=== PATIENT | female | born 1940 | race African-American/Black ===

== ENCOUNTER 2021-08-28 03:32 | Inpatient (IN) ==
[2021-08-28] MEDS ORDERED: SODIUM CHLORIDE 0.9% 1,000 ML IV STA (03:54)
[2021-08-28 05:09] LABS: Basophils # 0.1 10*3/uL (0.0-0.2); Basophils % 0.7 % (0.0-0.8); Eosinophils # 0.1 10*3/uL (0.0-0.87); Eosinophils % 0.5 % (0.00-10.9); Hematocrit 47.1 VOL% (35.7-47.0); Hemoglobin 14.8 GM/DL (12.0-16.0); Immature Granulocytes % 0.5 %; Immature Granulocytes Absolute 0.05 #; Lymphocytes # 2.5 10*3/uL (1.4-4.0); Lymphocytes % 25.2 % (21.3-54.2); Mean Corpuscular HGB Conc 31.4 GM/DL (32-36); Mean Corpuscular Volume 86.3 FL (87-102); Mean Platelet Volume 11.8 FL (9.6-12.0); Monocytes % 9.2 % (1.7-12.7); Neutrophils % 63.9 % (38.7-73.9); Platelet Count 259 T/CUMM (130-400); Red Blood Count 5.46 MC/CUMM (3.8-5.5); Red Cell Distribution Width 16.5 % (9.3-17.3)
[2021-08-28] MEDS ORDERED: LORazepam 2 MG/1 ML VIAL IV STA (05:19)
[2021-08-28 05:31] LABS: Albumin 3.6 G/DL (3.4-5.0); Calcium 9.2 MG/DL (8.5-10.1); Osmolality,Calculated 273.2 MOS/KG (273-304); Potassium 5.4 MMOL/L (3.5-5.1); Total Protein 8.1 G/DL (6.4-8.2)
[2021-08-28] MEDS ORDERED: DEXTROSE 50% 25 GM/50 ML VIAL IV STA (07:15)
[2021-08-28] MEDS ORDERED: DEXTROSE 50% 25 GM/50 ML SYRINGE IV ONE (07:15)
[2021-08-28] MEDS ORDERED: DEXTROSE 50% 25 GM/50 ML SYRINGE IV STA (07:22)
[2021-08-28] MEDS ORDERED: ONDANSETRON 4 MG/2 ML VIAL IV PRN (07:45)
[2021-08-28] MEDS ORDERED: hydrALAZINE 20 MG/1 ML VIAL IV PRN (07:45)
[2021-08-28] MEDS ORDERED: DOCUSATE SODIUM 100 MG CAPSULE PO PRN (07:45)
[2021-08-28] MEDS ORDERED: ACETAMINOPHEN 325 MG TABLET PO PRN (07:45)
[2021-08-28] MEDS ORDERED: ALUMINUM/MAGNES/SIMETH MAX STR 30 ML UDCUP PO PRN (07:45)
[2021-08-28] MEDS ORDERED: DEXTROSE 50% 25 GM/50 ML VIAL IV PRN (07:45)
[2021-08-28] MEDS ORDERED: GLUCAGON 1 MG VIAL IM PRN ×2 (07:45)
[2021-08-28] MEDS ORDERED: SODIUM CHLORIDE 0.9% 1,000 ML IV SCH (08:00)
[2021-08-28] MEDS ORDERED: DEXTROSE 50% 25 GM/50 ML SYRINGE IV PRN (08:05)
[2021-08-28 08:28] LABS: Bilirubin,Urine Negative (Negative); Blood, Urine Negative (Negative); Glucose,Urine (UA) Negative (Negative); Hyaline Casts,Urine 6 /LPF (0-3); Ketones,Urine Negative (Negative); Mucus,Urine Occasional /LPF (Occasional); Nitrite,Urine Negative (Negative); Protein,Urine 30 MG/DL; RBC,Urine 1 /HPF (0-4); Squamous Epithelial Cell,Urine Occasional /HPF (0-10); Urine Appearance Slightly Hazy (Clear); Urine Color Yellow (Yellow); Urine Urobilinogen < 2.0 EU/DL (0.2-1.0)
[2021-08-28 08:39] LABS: Risk Ratio 2.68; VLDL Cholesterol 20.6 MG/DL
[2021-08-28 09:26] LABS: ABG Base Excess 1.7 MMOL/L (-2.5-2.5); ABG HCO3 25.9 MMOL/L (20-26); ABG PCO2 39.7 MM HG (35-48); ABG PH 7.425 (7.35-7.45); ABG TCO2 22.5 MMOL/L (23-27); Allen Test Positive
[2021-08-28] MEDS: INSULIN LISPRO 100 UNIT/ML SUBCUT SCH ×5 (10:27→23:07)
[2021-08-28] MEDS: PANTOPRAZOLE 40 MG TABLET PO SCH (10:28)
[2021-08-28] MEDS: DEXTROSE 5% NACL 0.45% 1,000 ML IV SCH ×2 (10:29→23:07)
[2021-08-28 10:34] LABS: Calcium 9.1 MG/DL (8.5-10.1); Osmolality,Calculated 278.8 MOS/KG (273-304); Potassium 3.9 MMOL/L (3.5-5.1)
[2021-08-28] MEDS: HEPARIN 5,000 UNIT/1 ML VIAL SUBCUT SCH ×2 (10:34→22:57)
[2021-08-28] MEDS: hydrALAZINE 25 MG TABLET PO SCH ×2 (16:38→21:28)
[2021-08-28] MEDS ORDERED: ROSUVASTATIN 10 MG TABLET PO SCH (21:00)
[2021-08-28] MEDS ORDERED: amLODIPine 10 MG TABLET PO SCH (21:00)
[2021-08-28 23:56] LABS: Folate 7.94 NG/ML (5.38-24.0)
[2021-08-29] MEDS ORDERED: CHOLECALCIFEROL 1,000 UNIT TABLET PO SCH (09:00)
[2021-08-29 13:19] LABS: Basophils # 0.1 10*3/uL (0.0-0.2); Basophils % 0.8 % (0.0-0.8); Eosinophils # 0.2 10*3/uL (0.0-0.87); Eosinophils % 2.1 % (0.00-10.9); Hematocrit 41.4 VOL% (35.7-47.0); Hemoglobin 13.1 GM/DL (12.0-16.0); Immature Granulocytes % 0.3 %; Immature Granulocytes Absolute 0.02 #; Lymphocytes # 2.8 10*3/uL (1.4-4.0); Lymphocytes % 35.6 % (21.3-54.2); Mean Corpuscular HGB Conc 31.6 GM/DL (32-36); Mean Corpuscular Volume 85.7 FL (87-102); Mean Platelet Volume 11.8 FL (9.6-12.0); Monocytes % 9.9 % (1.7-12.7); Neutrophils % 51.3 % (38.7-73.9); Platelet Count 234 T/CUMM (130-400); Red Blood Count 4.83 MC/CUMM (3.8-5.5); Red Cell Distribution Width 16.1 % (9.3-17.3); White Blood Count 7.8 T/CUMM (4-12)
[2021-08-29] MEDS: DEXTROSE 5% NACL 0.45% 1,000 ML IV SCH ×2 (13:52→17:09)
[2021-08-29] MEDS: INSULIN LISPRO 100 UNIT/ML SUBCUT SCH ×4 (13:52→23:20)
[2021-08-29] MEDS: HEPARIN 5,000 UNIT/1 ML VIAL SUBCUT SCH ×2 (13:53→21:31)
[2021-08-29] MEDS: hydrALAZINE 25 MG TABLET PO SCH (13:53)
[2021-08-29] MEDS: PANTOPRAZOLE 40 MG TABLET PO SCH (13:53)
[2021-08-29] MEDS ORDERED: ZIPRASIDONE 20 MG/1 ML VIAL IM ONE (14:00)
[2021-08-29 14:08] LABS: Albumin 2.8 G/DL (3.4-5.0); Bilirubin,Total 1.03 MG/DL (0.20-1.00); Calcium 8.7 MG/DL (8.5-10.1); Osmolality,Calculated 278.8 MOS/KG (273-304); Potassium 3.4 MMOL/L (3.5-5.1); Total Protein 6.9 G/DL (6.4-8.2)
[2021-08-29] MEDS ORDERED: CHOLECALCIFEROL 1,000 UNIT TABLET PO ONE (14:56)
[2021-08-29] MEDS ORDERED: OLANZapine 10 MG VIAL IM ONE (15:08)
[2021-08-29] MEDS ORDERED: POTASSIUM CHLORIDE 20 MEQ TABLET PO ONE (15:16)
[2021-08-29] MEDS ORDERED: LORazepam 1 MG TABLET PO ONE (21:00)
[2021-08-30] MEDS: INSULIN LISPRO 100 UNIT/ML SUBCUT SCH ×5 (03:18→22:38)
[2021-08-30 06:03] LABS: Basophils # 0.1 10*3/uL (0.0-0.2); Basophils % 0.9 % (0.0-0.8); Eosinophils # 0.1 10*3/uL (0.0-0.87); Eosinophils % 1.5 % (0.00-10.9); Hematocrit 43.5 VOL% (35.7-47.0); Hemoglobin 13.7 GM/DL (12.0-16.0); Immature Granulocytes % 0.3 %; Immature Granulocytes Absolute 0.02 #; Lymphocytes # 1.7 10*3/uL (1.4-4.0); Lymphocytes % 25.1 % (21.3-54.2); Mean Corpuscular HGB Conc 31.5 GM/DL (32-36); Mean Corpuscular Volume 85.6 FL (87-102); Mean Platelet Volume 11.3 FL (9.6-12.0); Monocytes % 11.1 % (1.7-12.7); Neutrophils % 61.1 % (38.7-73.9); Platelet Count 275 T/CUMM (130-400); Red Blood Count 5.08 MC/CUMM (3.8-5.5); Red Cell Distribution Width 16.2 % (9.3-17.3); White Blood Count 6.7 T/CUMM (4-12)
[2021-08-30] MEDS: DEXTROSE 5% NACL 0.45% 1,000 ML IV SCH ×3 (06:25→16:42)
[2021-08-30 06:32] LABS: Calcium 9.5 MG/DL (8.5-10.1); Osmolality,Calculated 283.1 MOS/KG (273-304); Potassium 3.7 MMOL/L (3.5-5.1)
[2021-08-30] MEDS: PANTOPRAZOLE 40 MG TABLET PO SCH (10:11)
[2021-08-30] MEDS: CHOLECALCIFEROL 1,000 UNIT TABLET PO SCH (10:11)
[2021-08-30] MEDS: HEPARIN 5,000 UNIT/1 ML VIAL SUBCUT SCH ×2 (13:20→22:37)
[2021-08-31 06:29] LABS: Basophils # 0.1 10*3/uL (0.0-0.2); Basophils % 0.6 % (0.0-0.8); Eosinophils # 0.1 10*3/uL (0.0-0.87); Eosinophils % 0.7 % (0.00-10.9); Hematocrit 44.4 VOL% (35.7-47.0); Hemoglobin 14.3 GM/DL (12.0-16.0); Immature Granulocytes % 0.4 %; Immature Granulocytes Absolute 0.04 #; Lymphocytes # 2.4 10*3/uL (1.4-4.0); Lymphocytes % 25.5 % (21.3-54.2); Mean Corpuscular HGB Conc 32.2 GM/DL (32-36); Mean Corpuscular Volume 85.2 FL (87-102); Mean Platelet Volume 11.9 FL (9.6-12.0); Monocytes % 8.6 % (1.7-12.7); Neutrophils % 64.2 % (38.7-73.9); Platelet Count 218 T/CUMM (130-400); Red Blood Count 5.21 MC/CUMM (3.8-5.5); Red Cell Distribution Width 16.6 % (9.3-17.3); White Blood Count 9.5 T/CUMM (4-12)
[2021-08-31 06:46] LABS: Calcium 9.3 MG/DL (8.5-10.1); Osmolality,Calculated 276.5 MOS/KG (273-304); Potassium 3.9 MMOL/L (3.5-5.1)
[2021-08-31] MEDS: INSULIN LISPRO 100 UNIT/ML SUBCUT SCH ×4 (07:29→17:22)
[2021-08-31] MEDS: HEPARIN 5,000 UNIT/1 ML VIAL SUBCUT SCH (09:50)
[2021-08-31] MEDS: CHOLECALCIFEROL 1,000 UNIT TABLET PO SCH (09:50)
[2021-08-31] MEDS: PANTOPRAZOLE 40 MG TABLET PO SCH (09:50)
[2021-08-31] MEDS: DEXTROSE 5% NACL 0.45% 1,000 ML IV SCH ×3 (10:33→18:13)
[2021-08-31] MEDS ORDERED: amLODIPine 5 MG TABLET PO ONE (15:21)
[2021-08-31] MEDS ORDERED: KETOCONAZOLE 2% CREAM 30 GM TUBE TOP PRN (15:49)
[2021-08-31] MEDS: LOSARTAN 25 MG TABLET PO SCH (17:13)
[2021-08-31] MEDS: ROSUVASTATIN 10 MG TABLET PO SCH (22:38)
[2021-08-31] MEDS: HALOPERIDOL 1 MG TABLET PO SCH (22:38)
[2021-09-01 06:26] LABS: Calcium 8.7 MG/DL (8.5-10.1); Osmolality,Calculated 286.1 MOS/KG (273-304); Potassium 3.7 MMOL/L (3.5-5.1)
[2021-09-01] MEDS: DEXTROSE 5% NACL 0.45% 1,000 ML IV SCH ×2 (06:58→16:10)
[2021-09-01] MEDS: INSULIN LISPRO 100 UNIT/ML SUBCUT SCH ×5 (06:58→21:22)
[2021-09-01] MEDS ORDERED: NON-FORMULARY MEDICATION (Cholecalciferol (Vitamin D3) [Vitamin D3] 50 mcg (2,000 unit) Ta PO SCH (09:00)
[2021-09-01 09:58] LABS: PT Patient Result 11.2 SECS (10.5-12.0)
[2021-09-01] MEDS: HALOPERIDOL 1 MG TABLET PO SCH ×2 (10:38→21:21)
[2021-09-01] MEDS: LOSARTAN 25 MG TABLET PO SCH (10:38)
[2021-09-01] MEDS: CHOLECALCIFEROL 1,000 UNIT TABLET PO SCH (10:38)
[2021-09-01] MEDS: amLODIPine 5 MG TABLET PO SCH (10:41)
[2021-09-01] MEDS: PANTOPRAZOLE 40 MG TABLET PO SCH (10:41)
[2021-09-01 17:19] LABS: Glucose,CSF 85 MG/DL (40-70)
[2021-09-01 18:54] LABS: Red Blood Cell,CSF 1888 C/CUMM; White Blood Cell,CSF 2 C/CUMM
[2021-09-01 19:00] LABS: Lymphocytes,CSF 58 %; Monocytes,CSF 29 %; Neutrophils,CSF 14 %
[2021-09-01 19:05] LABS: Appearance,CSF Clear
[2021-09-01] MEDS: MEMANTINE 5 MG TABLET PO SCH (21:21)
[2021-09-01] MEDS: ROSUVASTATIN 10 MG TABLET PO SCH (21:21)
[2021-09-02] MEDS: DEXTROSE 5% NACL 0.45% 1,000 ML IV SCH ×2 (00:16→11:55)
[2021-09-02] MEDS: INSULIN LISPRO 100 UNIT/ML SUBCUT SCH ×4 (00:17→12:04)
[2021-09-02 06:40] LABS: Basophils # 0.1 10*3/uL (0.0-0.2); Basophils % 0.8 % (0.0-0.8); Eosinophils # 0.2 10*3/uL (0.0-0.87); Hematocrit 42.7 VOL% (35.7-47.0); Hemoglobin 13.3 GM/DL (12.0-16.0); Immature Granulocytes % 0.3 %; Immature Granulocytes Absolute 0.02 #; Lymphocytes # 2.5 10*3/uL (1.4-4.0); Lymphocytes % 31.8 % (21.3-54.2); Mean Corpuscular HGB Conc 31.1 GM/DL (32-36); Mean Corpuscular Volume 87.3 FL (87-102); Mean Platelet Volume 11.5 FL (9.6-12.0); Monocytes % 8.4 % (1.7-12.7); Neutrophils % 55.7 % (38.7-73.9); Platelet Count 247 T/CUMM (130-400); Red Blood Count 4.89 MC/CUMM (3.8-5.5); Red Cell Distribution Width 16.6 % (9.3-17.3); White Blood Count 7.7 T/CUMM (4-12)
[2021-09-02 07:06] LABS: Calcium 8.9 MG/DL (8.5-10.1); Osmolality,Calculated 285.1 MOS/KG (273-304)
[2021-09-02] MEDS: CHOLECALCIFEROL 1,000 UNIT TABLET PO SCH (10:23)
[2021-09-02] MEDS: HALOPERIDOL 1 MG TABLET PO SCH (10:23)
[2021-09-02] MEDS: amLODIPine 5 MG TABLET PO SCH (10:24)
[2021-09-02] MEDS: PANTOPRAZOLE 40 MG TABLET PO SCH (10:24)
[2021-09-02] MEDS: LOSARTAN 25 MG TABLET PO SCH (10:24)
[2021-09-02] MEDS: MEMANTINE 5 MG TABLET PO SCH (10:24)
[2021-09-02 12:36] VITALS: BP 145/81
[2021-09-03 13:11] LABS: VDRL Spinal Fluid Negative (Negative)
[2021-09-06 08:36] LABS: M. Tuberculosis PCR Result Negative (Negative); M. Tuberculosis PCR Source CSF
== END 2021-09-02 16:01 | disposition home health service (06) | DRG 682 ==
LOC: EDBD → EDUNIT# → N.ED 03:32 → SUATTDRO 07:45 → N.EDINP 07:45 → N.TELEN 16:00
PROVIDERS: ADMIT Internal Medicine; ATTEND Internal Medicine

== ENCOUNTER 2022-05-23 21:15 | Observation (INO) ==
[2022-05-23] MEDS ORDERED: SODIUM CHLORIDE 0.9% 500 ML IV STA ×2 (21:51→23:21)
[2022-05-23] MEDS ORDERED: ONDANSETRON 4 MG/2 ML VIAL IV STA (21:51)
[2022-05-23 22:17] LABS: Alanine Aminotransferase 31 U/L (13-56); Albumin 3.3 G/DL (3.4-5.0); Alkaline Phosphatase 108 U/L (45-117); Aspartate Amino Transferase 37 U/L (0-37); Bilirubin,Total < 0.39 MG/DL (0.20-1.00); Blood Urea Nitrogen 13 MG/DL (7-18); Calcium 9.2 MG/DL (8.5-10.1); Carbon Dioxide 29 MMOL/L (21-32); Chloride 109 MMOL/L (98-107); Glucose 180 MG/DL (74-106); Potassium 3.5 MMOL/L (3.5-5.1); Sodium 143 MMOL/L (136-145); Total Protein 7.6 G/DL (6.4-8.2)
[2022-05-23 22:36] LABS: Basophils # 0.1 10*3/uL (0.0-0.2); Basophils % 0.5 % (0.0-0.8); Eosinophils # 0.1 10*3/uL (0.0-0.87); Eosinophils % 0.4 % (0.00-10.9); Hematocrit 48.9 VOL% (35.7-47.0); Hemoglobin 15.2 GM/DL (12.0-16.0); Immature Granulocytes % 0.4 %; Immature Granulocytes Absolute 0.04 #; Lymphocytes # 2.6 10*3/uL (1.4-4.0); Lymphocytes % 22.7 % (21.3-54.2); Mean Corpuscular HGB Conc 31.1 GM/DL (32-36); Mean Corpuscular Volume 90.2 FL (87-102); Mean Platelet Volume 10.5 FL (9.6-12.0); Monocytes # 0.8 10*3/uL (0.11-0.8); Monocytes % 7.5 % (1.7-12.7); Neutrophils % 68.5 % (38.7-73.9); Platelet Count 249 T/CUMM (130-400); Red Blood Count 5.42 MC/CUMM (3.8-5.5); Red Cell Distribution Width 15.9 % (9.3-17.3); White Blood Count 11.3 T/CUMM (4-12)
[2022-05-23 23:52] LABS: Amorphous Crystals,Urine Occasional /HPF (Few); Mucus,Urine Occasional /LPF (Occasional); RBC,Urine 2 /HPF (0-4); Squamous Epithelial Cell,Urine Occasional /HPF (0-10); Urine Appearance Clear (Clear); Urine Color Yellow (Yellow)
[2022-05-23 23:53] LABS: Bilirubin,Urine Negative (Negative); Blood, Urine Negative (Negative); Glucose,Urine (UA) >=1000 mg/dL (Negative); Ketones,Urine Negative (Negative); Nitrite,Urine Negative (Negative); Protein,Urine 30 mg/dL (Negative); Urine Urobilinogen 0.2 eU/dL (<2.0)
[2022-05-24] MEDS ORDERED: ONDANSETRON 4 MG/2 ML VIAL IV PRN (01:49)
[2022-05-24] MEDS ORDERED: GLUCAGON 1 MG VIAL IM PRN (01:49)
[2022-05-24] MEDS ORDERED: ACETAMINOPHEN 325 MG TABLET PO PRN (01:49)
[2022-05-24] MEDS ORDERED: DEXTROSE 10% 250 ML BAG IV PRN (01:54)
[2022-05-24] MEDS: LACTATED RINGERS 1,000 ML IV SCH ×2 (02:22→14:00)
[2022-05-24 04:19] LABS: Basophils # 0.1 10*3/uL (0.0-0.2); Basophils % 0.5 % (0.0-0.8); Eosinophils % 0.1 % (0.00-10.9); Hematocrit 44.3 VOL% (35.7-47.0); Hemoglobin 13.8 GM/DL (12.0-16.0); Immature Granulocytes % 0.4 %; Immature Granulocytes Absolute 0.04 #; Lymphocytes # 1.7 10*3/uL (1.4-4.0); Lymphocytes % 17.6 % (21.3-54.2); Mean Corpuscular HGB Conc 31.2 GM/DL (32-36); Mean Corpuscular Volume 89.7 FL (87-102); Mean Platelet Volume 10.5 FL (9.6-12.0); Monocytes # 0.6 10*3/uL (0.11-0.8); Monocytes % 6.3 % (1.7-12.7); Neutrophils % 75.1 % (38.7-73.9); Platelet Count 233 T/CUMM (130-400); Red Blood Count 4.94 MC/CUMM (3.8-5.5); Red Cell Distribution Width 15.9 % (9.3-17.3); White Blood Count 9.7 T/CUMM (4-12)
[2022-05-24 04:42] LABS: Calcium 8.6 MG/DL (8.5-10.1); Osmolality,Calculated 283.1 MOS/KG (273-304); Potassium 3.5 MMOL/L (3.5-5.1)
[2022-05-24] MEDS: INSULIN REGULAR 100 UNIT/ML SUBCUT SCH ×4 (07:36→21:35)
[2022-05-24] MEDS: PANTOPRAZOLE 40 MG TABLET PO SCH (09:28)
[2022-05-24] MEDS: ENOXAPARIN 40 MG/0.4 ML SYRINGE SUBCUT SCH (09:28)
[2022-05-24] MEDS ORDERED: ROSUVASTATIN 10 MG TABLET PO SCH (21:00)
[2022-05-24] MEDS: MEMANTINE 10 MG TABLET PO SCH (21:34)
[2022-05-24] MEDS: HALOPERIDOL 1 MG TABLET PO SCH (21:34)
[2022-05-25] MEDS: LACTATED RINGERS 1,000 ML IV SCH ×2 (03:20→08:35)
[2022-05-25] MEDS: HALOPERIDOL 1 MG TABLET PO SCH (08:31)
[2022-05-25] MEDS: MEMANTINE 10 MG TABLET PO SCH (08:31)
[2022-05-25] MEDS: PANTOPRAZOLE 40 MG TABLET PO SCH (08:31)
[2022-05-25] MEDS: ENOXAPARIN 40 MG/0.4 ML SYRINGE SUBCUT SCH (08:32)
[2022-05-25] MEDS: INSULIN REGULAR 100 UNIT/ML SUBCUT SCH ×2 (08:35→12:20)
[2022-05-25] MEDS ORDERED: amLODIPine 10 MG TABLET PO SCH (09:00)
[2022-05-25] MEDS ORDERED: VALSARTAN 160 MG TABLET PO SCH (09:00)
[2022-05-25 12:12] VITALS: BP 169/68
== END 2022-05-25 13:21 | disposition home or self-care (01) ==
LOC: EDBD → EDUNIT# → N.EDINP 21:15 → N.ED 21:15 → N.EDINP 05-24 16:18 → N.5E 05-24 16:21
PROVIDERS: ADMIT Internal Medicine; ATTEND Internal Medicine

== ENCOUNTER 2022-10-14 15:19 | Inpatient (IN) ==
[2022-10-14 16:24] LABS: Basophils # 0.1 10*3/uL (0.0-0.2); Basophils % 0.7 % (0.0-0.8); Eosinophils # 0.1 10*3/uL (0.0-0.87); Eosinophils % 0.9 % (0.00-10.9); Hematocrit 47.1 VOL% (35.7-47.0); Hemoglobin 15.1 GM/DL (12.0-16.0); Immature Granulocytes % 0.3 %; Immature Granulocytes Absolute 0.02 #; Lymphocytes # 2.9 10*3/uL (1.4-4.0); Mean Corpuscular HGB Conc 32.1 GM/DL (32-36); Mean Corpuscular Volume 88.9 FL (87-102); Mean Platelet Volume 10.6 FL (9.6-12.0); Monocytes # 0.5 10*3/uL (0.11-0.8); Monocytes % 7.3 % (1.7-12.7); Neutrophils % 48.8 % (38.7-73.9); Platelet Count 216 T/CUMM (130-400)
[2022-10-14 16:35] LABS: PT Patient Result 11.1 SECS (10.1-12.1)
[2022-10-14 16:59] LABS: Bilirubin,Urine Negative (Negative); Blood, Urine Negative (Negative); Glucose,Urine (UA) >=1000 mg/dL (Negative); Ketones,Urine Negative (Negative); Nitrite,Urine Negative (Negative); Protein,Urine Negative (Negative); Squamous Epithelial Cell,Urine Occasional /HPF (0-10); Urine Appearance Clear (Clear); Urine Color Yellow (Yellow)
[2022-10-14 17:04] LABS: Alanine Aminotransferase 17 U/L (13-56); Albumin 3.4 G/DL (3.4-5.0); Alkaline Phosphatase 79 U/L (45-117); Aspartate Amino Transferase 19 U/L (0-37); Blood Urea Nitrogen 18 MG/DL (7-18); Calcium 9.4 MG/DL (8.5-10.1); Carbon Dioxide 29 MMOL/L (21-32); Chloride 106 MMOL/L (98-107); Glucose 137 MG/DL (74-106); Osmolality,Calculated 284.3 MOS/KG (273-304); Potassium 4.5 MMOL/L (3.5-5.1); Sodium 141 MMOL/L (136-145); Total Protein 7.4 G/DL (6.4-8.2)
[2022-10-14] MEDS ORDERED: ACETAMINOPHEN 325 MG TABLET PO PRN (17:50)
[2022-10-14] MEDS ORDERED: DEXTROSE 10% 250 ML BAG IV PRN (17:50)
[2022-10-14] MEDS ORDERED: GLUCAGON 1 MG VIAL IM PRN (17:50)
[2022-10-14] MEDS ORDERED: ONDANSETRON 4 MG/2 ML VIAL IV PRN (17:50)
[2022-10-14 20:33] LABS: Barbiturates Screen,Urine Negative (Negative); Benzodiazepines Screen,Urine Negative (Negative); Cannabinoid Screen,Urine Negative (Negative); Opiate Screen,Urine Negative (Negative); Phencyclidine Screen,Urine Negative (Negative)
[2022-10-14] MEDS ORDERED: DOPamine 800 MG/250 ML PREMIX IV ONE (22:13)
[2022-10-14] MEDS ORDERED: ATROPINE 1 MG/10 ML SYRINGE ONE (22:19)
[2022-10-14] MEDS: DOPamine 800 MG/250 ML PREMIX IV PRN (22:19)
[2022-10-14] MEDS ORDERED: ALBUTEROL 2.5 MG/3 ML NEB RESP TX PRN (22:27)
[2022-10-14] MEDS ORDERED: GLUCAGON 1 MG VIAL IV ONE (22:50)
[2022-10-14] MEDS: INSULIN REGULAR 100 UNIT/ML SUBCUT SCH (23:56)
[2022-10-15] MEDS: SODIUM CHLORIDE 0.9% 1,000 ML IV SCH ×3 (00:14→20:13)
[2022-10-15 00:50] LABS: Bacteria,Urine Occasional /HPF (Few); Mucus,Urine Occasional /LPF (Occasional); RBC,Urine <1 /HPF (0-4); Squamous Epithelial Cell,Urine Occasional /HPF (0-10); Urine Appearance Clear (Clear); Urine Color Yellow (Yellow)
[2022-10-15 00:51] LABS: Bilirubin,Urine Negative (Negative); Blood, Urine Negative (Negative); Glucose,Urine (UA) >=1000 mg/dL (Negative); Ketones,Urine Negative (Negative); Nitrite,Urine Negative (Negative); Protein,Urine Negative (Negative); Urine Specific Gravity 1.015 (1.001-1.035); Urine Urobilinogen 0.2 eU/dL (<2.0)
[2022-10-15 04:24] LABS: Basophils # 0.1 10*3/uL (0.0-0.2); Basophils % 0.6 % (0.0-0.8); Eosinophils % 0.1 % (0.00-10.9); Hematocrit 48.2 VOL% (35.7-47.0); Hemoglobin 15.3 GM/DL (12.0-16.0); Immature Granulocytes % 0.1 %; Immature Granulocytes Absolute 0.01 #; Lymphocytes # 1.8 10*3/uL (1.4-4.0); Lymphocytes % 22.9 % (21.3-54.2); Mean Corpuscular HGB Conc 31.7 GM/DL (32-36); Mean Corpuscular Volume 90.3 FL (87-102); Mean Platelet Volume 10.7 FL (9.6-12.0); Monocytes # 0.6 10*3/uL (0.11-0.8); Monocytes % 7.6 % (1.7-12.7); Neutrophils % 68.7 % (38.7-73.9); Platelet Count 202 T/CUMM (130-400); Red Blood Count 5.34 MC/CUMM (3.8-5.5); Red Cell Distribution Width 14.9 % (9.3-17.3); White Blood Count 7.8 T/CUMM (4-12)
[2022-10-15 04:50] LABS: Albumin 3.4 G/DL (3.4-5.0); Bilirubin,Total 0.4 MG/DL (0.20-1.00); Calcium 9.1 MG/DL (8.5-10.1); Osmolality,Calculated 285.3 MOS/KG (273-304); Potassium 4.1 MMOL/L (3.5-5.1); Risk Ratio 2.13; Thyroid Stimulating Hormone 1.49 uIU/ml (0.358-3.74); Total Protein 7.4 G/DL (6.4-8.2); VLDL Cholesterol 18.2 MG/DL
[2022-10-15] MEDS: INSULIN REGULAR 100 UNIT/ML SUBCUT SCH ×4 (08:26→21:00)
[2022-10-15] MEDS: DOPamine 800 MG/250 ML PREMIX IV PRN ×2 (11:00→23:28)
[2022-10-15] MEDS ORDERED: PHENTOLAMINE 5 MG VIAL INFILTRAT ONE (23:30)
[2022-10-16 04:19] LABS: Basophils # 0.1 10*3/uL (0.0-0.2); Basophils % 0.6 % (0.0-0.8); Eosinophils % 0.1 % (0.00-10.9); Hematocrit 43.5 VOL% (35.7-47.0); Immature Granulocytes % 0.5 %; Immature Granulocytes Absolute 0.04 #; Lymphocytes # 1.4 10*3/uL (1.4-4.0); Lymphocytes % 15.5 % (21.3-54.2); Mean Corpuscular HGB Conc 32.2 GM/DL (32-36); Mean Platelet Volume 10.7 FL (9.6-12.0); Monocytes # 0.8 10*3/uL (0.11-0.8); Monocytes % 9.5 % (1.7-12.7); Neutrophils % 73.8 % (38.7-73.9); Platelet Count 191 T/CUMM (130-400); Red Blood Count 4.78 MC/CUMM (3.8-5.5); Red Cell Distribution Width 14.7 % (9.3-17.3); White Blood Count 8.7 T/CUMM (4-12)
[2022-10-16 04:28] LABS: Calcium 8.9 MG/DL (8.5-10.1); Osmolality,Calculated 285.1 MOS/KG (273-304); Potassium 4.1 MMOL/L (3.5-5.1)
[2022-10-16] MEDS: INSULIN REGULAR 100 UNIT/ML SUBCUT SCH ×3 (11:58→20:08)
[2022-10-16] MEDS: SODIUM CHLORIDE 0.9% 1,000 ML IV SCH (18:00)
[2022-10-16] MEDS: hydrALAZINE 20 MG/1 ML VIAL IV PRN (20:07)
[2022-10-17 03:46] LABS: Basophils # 0.1 10*3/uL (0.0-0.2); Basophils % 0.5 % (0.0-0.8); Eosinophils # 0.1 10*3/uL (0.0-0.87); Eosinophils % 1.3 % (0.00-10.9); Hematocrit 40.6 VOL% (35.7-47.0); Hemoglobin 12.9 GM/DL (12.0-16.0); Immature Granulocytes % 0.4 %; Immature Granulocytes Absolute 0.04 #; Lymphocytes # 2.9 10*3/uL (1.4-4.0); Lymphocytes % 29.4 % (21.3-54.2); Mean Corpuscular HGB Conc 31.8 GM/DL (32-36); Mean Corpuscular Volume 90.4 FL (87-102); Mean Platelet Volume 10.3 FL (9.6-12.0); Monocytes # 0.8 10*3/uL (0.11-0.8); Monocytes % 7.7 % (1.7-12.7); Neutrophils % 60.7 % (38.7-73.9); Platelet Count 173 T/CUMM (130-400); Red Blood Count 4.49 MC/CUMM (3.8-5.5); Red Cell Distribution Width 15.2 % (9.3-17.3); White Blood Count 9.7 T/CUMM (4-12)
[2022-10-17 04:13] LABS: Calcium 8.7 MG/DL (8.5-10.1)
[2022-10-17] MEDS: INSULIN REGULAR 100 UNIT/ML SUBCUT SCH ×4 (07:12→20:43)
[2022-10-17] MEDS: ASPIRIN EC 81 MG TABLET PO SCH (09:27)
[2022-10-17] MEDS ORDERED: DIAZEPAM 5 MG TABLET PO ONE (12:12)
[2022-10-17] MEDS ORDERED: diphenhydrAMINE CAP 25 MG CAPSULE PO ONE (12:12)
[2022-10-17] MEDS ORDERED: ceFAZolin 1,000 MG VIAL IRRIG ONE (12:12)
[2022-10-17] MEDS: DEXTROSE 5% NACL 0.9% 1,000 ML IV SCH (13:31)
[2022-10-17] MEDS ORDERED: ceFAZolin 1,000 MG VIAL ONE (13:49)
[2022-10-17] MEDS ORDERED: TISSUE ADHESIVE 1 EACH APPLICATOR TOP ONE (13:49)
[2022-10-17] MEDS ORDERED: fentaNYL 100 MCG/2 ML VIAL ONE (14:44)
[2022-10-17] MEDS ORDERED: MIDAZOLAM 2 MG/2 ML VIAL ONE ×2 (14:44→15:43)
[2022-10-17] MEDS ORDERED: HYDROmorphone 1 MG/1 ML SYRINGE ONE (15:43)
[2022-10-17] MEDS ORDERED: GLUCAGON 1 MG VIAL IM PRN (16:34)
[2022-10-17] MEDS ORDERED: DEXTROSE 50% 25 GM/50 ML VIAL IV PRN (16:34)
[2022-10-17] MEDS: ROSUVASTATIN 10 MG TABLET PO SCH (20:38)
[2022-10-17] MEDS: MEMANTINE 10 MG TABLET PO SCH (20:38)
[2022-10-17] MEDS: INSULIN GLARGINE 100 UNIT/ML SUBCUT SCH (20:43)
[2022-10-17] MEDS: hydrALAZINE 20 MG/1 ML VIAL IV PRN (22:07)
[2022-10-17] MEDS: LORazepam 2 MG/1 ML VIAL IV PRN (23:18)
[2022-10-18] MEDS: LORazepam 2 MG/1 ML VIAL IV PRN (00:50)
[2022-10-18 04:31] LABS: Basophils # 0.1 10*3/uL (0.0-0.2); Basophils % 0.6 % (0.0-0.8); Eosinophils # 0.1 10*3/uL (0.0-0.87); Eosinophils % 0.8 % (0.00-10.9); Hematocrit 36.9 VOL% (35.7-47.0); Immature Granulocytes % 0.3 %; Immature Granulocytes Absolute 0.03 #; Lymphocytes # 1.7 10*3/uL (1.4-4.0); Lymphocytes % 18.6 % (21.3-54.2); Mean Corpuscular HGB Conc 32.5 GM/DL (32-36); Mean Corpuscular Volume 91.3 FL (87-102); Mean Platelet Volume 11.1 FL (9.6-12.0); Monocytes # 0.7 10*3/uL (0.11-0.8); Monocytes % 7.9 % (1.7-12.7); Neutrophils % 71.8 % (38.7-73.9); Platelet Count 156 T/CUMM (130-400); Red Blood Count 4.04 MC/CUMM (3.8-5.5); Red Cell Distribution Width 15.3 % (9.3-17.3)
[2022-10-18 04:49] LABS: Calcium 8.4 MG/DL (8.5-10.1); Osmolality,Calculated 286.8 MOS/KG (273-304); Potassium 3.6 MMOL/L (3.5-5.1)
[2022-10-18] MEDS ORDERED: LORazepam 2 MG/1 ML VIAL IV PRN (04:53)
[2022-10-18] MEDS: INSULIN REGULAR 100 UNIT/ML SUBCUT SCH ×4 (07:31→20:17)
[2022-10-18] MEDS: hydrALAZINE 20 MG/1 ML VIAL IV PRN ×3 (07:45→23:36)
[2022-10-18] MEDS: ASPIRIN EC 81 MG TABLET PO SCH (08:00)
[2022-10-18] MEDS: DAPAGLIFLOZIN 5 MG TABLET PO SCH (08:01)
[2022-10-18] MEDS: MEMANTINE 10 MG TABLET PO SCH ×2 (08:01→20:14)
[2022-10-18] MEDS ORDERED: LOSARTAN 25 MG TABLET PO SCH (12:00)
[2022-10-18] MEDS: DEXTROSE 5% NACL 0.9% 1,000 ML IV SCH (12:02)
[2022-10-18] MEDS: ROSUVASTATIN 10 MG TABLET PO SCH (20:14)
[2022-10-18] MEDS: INSULIN GLARGINE 100 UNIT/ML SUBCUT SCH (20:20)
[2022-10-19 04:53] LABS: Basophils % 0.3 % (0.0-0.8); Eosinophils # 0.1 10*3/uL (0.0-0.87); Eosinophils % 1.3 % (0.00-10.9); Hematocrit 39.3 VOL% (35.7-47.0); Hemoglobin 12.9 GM/DL (12.0-16.0); Immature Granulocytes % 0.3 %; Immature Granulocytes Absolute 0.03 #; Lymphocytes # 1.7 10*3/uL (1.4-4.0); Lymphocytes % 17.9 % (21.3-54.2); Mean Corpuscular HGB Conc 32.8 GM/DL (32-36); Mean Corpuscular Volume 89.7 FL (87-102); Monocytes # 0.8 10*3/uL (0.11-0.8); Monocytes % 8.2 % (1.7-12.7); Platelet Count 148 T/CUMM (130-400); Red Blood Count 4.38 MC/CUMM (3.8-5.5); Red Cell Distribution Width 15.2 % (9.3-17.3); White Blood Count 9.3 T/CUMM (4-12)
[2022-10-19 05:10] LABS: Calcium 8.8 MG/DL (8.5-10.1); Osmolality,Calculated 279.3 MOS/KG (273-304); Potassium 3.3 MMOL/L (3.5-5.1)
[2022-10-19] MEDS ORDERED: POTASSIUM BICARB EFFERVESCENT 20 MEQ TAB.EFF PER TUBE PRN (05:20)
[2022-10-19] MEDS: atenoloL 50 MG TABLET PO SCH (08:04)
[2022-10-19] MEDS: DAPAGLIFLOZIN 5 MG TABLET PO SCH (08:04)
[2022-10-19] MEDS: MEMANTINE 10 MG TABLET PO SCH ×2 (08:04→20:11)
[2022-10-19] MEDS: ASPIRIN EC 81 MG TABLET PO SCH (08:04)
[2022-10-19] MEDS: APIXABAN 5 MG TABLET PO SCH ×2 (08:05→20:11)
[2022-10-19] MEDS: INSULIN REGULAR 100 UNIT/ML SUBCUT SCH ×4 (08:13→20:11)
[2022-10-19] MEDS ORDERED: atenoloL 25 MG TABLET PO SCH (09:00)
[2022-10-19] MEDS ORDERED: DILTIAZEM CD 180 MG CAPSULE PO SCH (09:00)
[2022-10-19] MEDS: DILTIAZEM CD 240 MG CAPSULE PO SCH (09:16)
[2022-10-19] MEDS: ROSUVASTATIN 10 MG TABLET PO SCH (20:11)
[2022-10-19] MEDS: INSULIN GLARGINE 100 UNIT/ML SUBCUT SCH (20:12)
[2022-10-19] MEDS: DEXTROSE 5% NACL 0.9% 1,000 ML IV SCH (20:25)
[2022-10-20] MEDS ORDERED: LOSARTAN 25 MG TABLET PO SCH (09:00)
[2022-10-20] MEDS ORDERED: MAGNESIUM HYDROXIDE SUSP 30 ML UDCUP PO ONE (09:24)
[2022-10-20] MEDS: INSULIN REGULAR 100 UNIT/ML SUBCUT SCH ×2 (10:45→12:43)
[2022-10-20] MEDS: ASPIRIN EC 81 MG TABLET PO SCH (10:46)
[2022-10-20] MEDS: DILTIAZEM CD 240 MG CAPSULE PO SCH (10:46)
[2022-10-20] MEDS: DAPAGLIFLOZIN 5 MG TABLET PO SCH (10:46)
[2022-10-20] MEDS: atenoloL 50 MG TABLET PO SCH (10:47)
[2022-10-20] MEDS: APIXABAN 5 MG TABLET PO SCH (10:47)
[2022-10-20] MEDS: MEMANTINE 10 MG TABLET PO SCH (10:47)
[2022-10-20 12:51] VITALS: BP 144/71
[2022-10-20] MEDS ORDERED: POTASSIUM CHLORIDE 20 MEQ TABLET PO ONE (13:00)
== END 2022-10-20 15:22 | disposition swing bed (61) | DRG 242 ==
LOC: N.2W 15:19 → N.ED 15:19 → SUATTDRO 17:50 → N.2W 18:50 → N.ICU 22:49 → SUATTDRO 10-15 00:52 → N.TELES 10-19 15:47
PROVIDERS: ADMIT Internal Medicine Geriatric Medicine; ATTEND Internal Medicine